=== PATIENT | female | born 1995 | race Caucasian/White ===

== ENCOUNTER 2024-02-25 02:58 | Emergency (ER) | payer SELFPAY | END 2024-02-25 04:28 | disposition home or self-care (01) | LOC: CSHERS 02:58 | DX: L91.8 Other hypertrophic disorders of the skin (principal); G40.909 Epilepsy, unspecified, not intractable, without status epilepticus; Z79.899 Other long term (current) drug therapy; Z87.891 Personal history of nicotine dependence | CPT/HCPCS: 99283 ==

== ENCOUNTER 2024-02-27 12:09 | Emergency (ER) | payer SELFPAY ==
[2024-02-27] MEDS ORDERED: Dexamethasone 10 MG/ML VIAL ONE (13:06)
== END 2024-02-27 13:21 | disposition home or self-care (01) ==
LOC: CSHERS 12:09
DX: L30.9 Dermatitis, unspecified (principal); Z87.891 Personal history of nicotine dependence
CPT/HCPCS: 96372; 99282; J1100

== ENCOUNTER 2024-06-17 09:36 | Emergency (ER) | payer OTHER, SELFPAY ==
[2024-06-17] MEDS ORDERED: Ibuprofen 200 MG TAB ONE (10:36)
[2024-06-17 11:35] LABS: Influenza A by NAA Not Detected (NotDetected); Influenza B by NAA Not Detected (NotDetected); SARS-CoV-2 NAA Rapid Test Not Detected (NotDetected)
== END 2024-06-17 12:00 | disposition home or self-care (01) ==
LOC: CSHERS 09:36
DX: L30.9 Dermatitis, unspecified (principal); B34.9 Viral infection, unspecified; Z87.891 Personal history of nicotine dependence
CPT/HCPCS: 87081; 87430; 99283

== ENCOUNTER 2024-07-14 13:07 | Emergency (ER) | payer OTHER | END 2024-07-14 13:44 | disposition home or self-care (01) | LOC: CSHERS 13:07 | DX: L30.9 Dermatitis, unspecified (principal); F17.290 Nicotine dependence, other tobacco product, uncomplicated; Z75.3 Unavailability and inaccessibility of health-care facilities; Z55.6 Problems related to health literacy | CPT/HCPCS: 99282 ==